=== PATIENT | female | born 1975 | race Caucasian/White ===

== ENCOUNTER 2023-01-06 16:38 | Emergency (ER) | payer BC | END 2023-01-06 17:05 | disposition home or self-care (01) | LOC: BURERS 16:38 | DX: S81.052A Open bite, left knee, initial encounter (principal); K21.9 Gastro-esophageal reflux disease without esophagitis; G47.30 Sleep apnea, unspecified; W54.0XXA Bitten by dog, initial encounter | CPT/HCPCS: 99283 ==